=== PATIENT | male | born 1975 | race American Indian/Alaskan Native ===

== ENCOUNTER 2018-05-18 14:02 | Emergency (ER) | payer SELFPAY ==
[2018-05-18 14:32] VITALS: BP 142/95
[2018-05-18] MEDS ORDERED: DELTASONE PO ONE (19:53)
[2018-05-18] MEDS ORDERED: BENADRYL PO ONE (19:53)
[2018-05-18] MEDS ORDERED: REGLAN PO ONE (19:53)
--- NOTE | 2018-05-18 20:06 | Emergency Department Report ---
ED Medical Clearance HPI - General Chief complaint: Medical Clearance Stated complaint: BEE STING YELLOW JACKET/ALLERGIC Time Seen by Provider: 05/18/18 19:18 Source: patient Mode of arrival: Ambulatory - History of Present Illness Initial comments: 42 y/o male s/p insect sting left ankle 6 hrs ago was complaining of itching burning irritation no sob no wheezing no fever no sob no palpitations open no open wound. Onset/Timin -: Sudden, month(s) Reason for Medical Clearance: other (insect sting ) Place: home Alledged Intoxication: No Compliant with Home Medications: No Traumatic Symptoms: denies traumatic injury Associated Symptoms: denies: chest pain, shortness of breath, palpitations, diaphoresis, denies other symptoms, confusion, cough, fever/chills, headaches, anorexia, malaise, nausea/vomiting, rash, seizure, syncope, weakness Treatments Prior to Arrival: none Home medications: Previous Rx's Medication Instructions Recorded Last Taken Type Diphenhydramine HCl [Benadryl GEL] 1 applic TP TID PRN #1 bottle 05/18/18 Unknown Rx Metoclopramide [Reglan] 10 mg PO TID #21 tab 05/18/18 Unknown Rx diphenhydrAMINE [Benadryl CAP] 25 mg PO Q8HR PRN #21 capsule 05/18/18 Unknown Rx predniSONE [Deltasone] 40 mg PO QDAY #10 tab 05/18/18 Unknown Rx Allergies/Adverse reactions: Allergies Allergy/AdvReac Type Severity Reaction Status Date / Time No Known Allergies Allergy Unverified 05/18/18 14:32 ED Review of Systems ROS: Stated complaint: BEE STING YELLOW JACKET/ALLERGIC Other details as noted in HPI Constitutional: denies: chills, fever Eyes: denies: eye pain, eye discharge, vision change ENT: denies: ear pain, throat pain Respiratory: denies: cough, shortness of breath, wheezing Cardiovascular: denies: chest pain, palpitations Endocrine: no symptoms reported Gastrointestinal: denies: abdominal pain, nausea, diarrhea Genitourinary: denies: urgency, dysuria Musculoskeletal: denies: back pain, joint swelling, arthralgia Skin: pruritus, other (mild swelling no erythema mild swelling no open wound no drainage ). denies: rash, lesions, change in color, change in hair/nails Neurological: denies: headache, weakness, paresthesias Psychiatric: as per HPI Hematological/Lymphatic: denies: easy bleeding, easy bruising ED Past Medical Hx - Past Medical History Previous Medical History?: No - Surgical History Past Surgical History?: No - Social History Smoking Status: Current Every Day Smoker Substance Use Type: None - Medications Home Medications: Home Medications Medication Instructions Recorded Confirmed Last Taken Type Diphenhydramine HCl [Benadryl GEL] 1 applic TP TID PRN #1 bottle 05/18/18 Unknown Rx Metoclopramide [Reglan] 10 mg PO TID #21 tab 05/18/18 Unknown Rx diphenhydrAMINE [Benadryl CAP] 25 mg PO Q8HR PRN #21 capsule 05/18/18 Unknown Rx predniSONE [Deltasone] 40 mg PO QDAY #10 tab 05/18/18 Unknown Rx ED Physical Exam - General Limitations: No Limitations General appearance: alert, in no apparent distress - Head Head exam: Present: atraumatic, normocephalic - Eye Eye exam: Present: normal appearance - ENT ENT exam: Present: mucous membranes moist - Neck Neck exam: Present: normal inspection - Respiratory Respiratory exam: Present: normal lung sounds bilaterally. Absent: respiratory distress, wheezes, rales, rhonchi, stridor, chest wall tenderness, accessory muscle use, decreased breath sounds, prolonged expiratory - Cardiovascular Cardiovascular Exam: Present: regular rate, normal rhythm. Absent: systolic murmur, diastolic murmur, rubs, gallop - GI/Abdominal GI/Abdominal exam: Present: soft, normal bowel sounds. Absent: distended, tenderness, guarding, rebound, rigid, organomegaly, mass, bruit, pulsatile mass - Rectal Rectal exam: Present: deferred - Extremities Exam Extremities exam: Present: normal inspection - Back Exam Back exam: Present: normal inspection - Neurological Exam Neurological exam: Present: alert, oriented X3, CN II-XII intact, normal gait, reflexes normal - Psychiatric Psychiatric exam: Present: normal affect, normal mood - Skin Skin exam: Present: warm, dry, intact, normal color, urticaria (left lateral ankle mild swelling pruritis no erythema no drainage ). Absent: rash, cyanosis , diaphoretic, erythema, vesicles, petechiae, pallor, abrasion, ecchymosis ED Course Vital Signs 05/18/18 14:29 Temperature 98.6 F Pulse Rate 63 Respiratory 16 Rate Blood Pressure 142/95 O2 Sat by Pulse 99 Oximetry ED Medical Decision Making - Medical Decision Making This is simple insect sting there are no symptoms of anaphylaxis plan by mouth prednisone and Benadryl Reglan followed PCP N2 to 3 days patient verbalizes understanding and signed will be DC'd home in stable condition at this time. ED Disposition Clinical Impression: Insect sting Qualifiers: Encounter type: initial encounter Injury intent: accidental or unintentional Qualified Code(s): T63.481A - Toxic effect of venom of other arthropod, accidental (unintentional), initial encounter Disposition: DC-01 TO HOME OR SELFCARE Is pt being admited?: No Does the pt Need Aspirin: No Condition: Good Instructions: Insect Bite or Sting (ED) Prescriptions: diphenhydrAMINE [Benadryl CAP] 25 mg PO Q8HR PRN #21 capsule PRN Reason: Itching Diphenhydramine HCl [Benadryl GEL] 1 applic TP TID PRN #1 bottle PRN Reason: Itching Metoclopramide [Reglan] 10 mg PO TID #21 tab predniSONE [Deltasone] 40 mg PO QDAY #10 tab Referrals: [facility] [Outside] - 3-5 Days Forms: Work/School Release Form(ED) Time of Disposition: 20:10
== END 2018-05-18 20:10 | disposition home or self-care (01) ==
LOC: ED 14:02
DX: T63.481A Toxic effect of venom of other arthropod, accidental (unintentional), initial encounter (principal); F17.200 Nicotine dependence, unspecified, uncomplicated; W57.XXXA Bitten or stung by nonvenomous insect and other nonvenomous arthropods, initial encounter; Y93.89 Activity, other specified; Y99.8 Other external cause status; Y92.89 Other specified places as the place of occurrence of the external cause
CPT/HCPCS: 99282; J7512